=== PATIENT | female | born 1995 | race Caucasian/White ===

== ENCOUNTER 2017-07-07 14:20 | Emergency (ER) | payer SELFPAY ==
[~2017-07-07] VITALS: Ht 162.6 cm; Wt 54.8 kg
[~2017-07-07 14:20] MED LIST: BENZONATATE100 MG PO; DICYCLOMINE HCL20 MG PO; FLEXERIL10 MG PO; HYOSCYAMINE0.375 MG PO; KLONOPIN0.5 M1 PO; LEVOFLOXACIN500 MG PO; MEDROXYPRO150 MG/1 M IM; MOTRIN600 MG PO; PREDNISONE20 MG PO
[2017-07-07] MEDS ORDERED: MOTRIN800 MG PO (15:58)
[2017-07-07] MEDS ORDERED: ZYRTEC10 M2 PO (15:58)
[2017-07-07] MEDS ORDERED: FLONASE16 G1 BOTH NARES (15:58)
[2017-07-07 16:14] VITALS: BP 108/68
== END 2017-07-07 16:15 | disposition home or self-care (01) ==
LOC: EME 14:20
DX: J06.9 Acute upper respiratory infection, unspecified (principal); J02.9 Acute pharyngitis, unspecified; F17.200 Nicotine dependence, unspecified, uncomplicated
CPT/HCPCS: 71020; 87651 90; 99281; 99284